=== PATIENT | female | born 1950 | race Caucasian/White ===

== ENCOUNTER 2017-08-22 18:02 | Emergency (ER) | payer MEDICARE ==
[2017-08-22 18:51] LABS: #Eosinphils 0.1 thou/uL (0.0-0.7); #Lymphocytes 2.3 thou/uL (1.20-3.40); #Monocytes 0.7 thou/uL (0.11-0.59); #Neutrophils 5.9 thou/uL (1.40-6.50); %Basophils 0.4 % (0.0-1.0); %Eosinophils 1.4 % (0.0-10.0); %Lymphocytes 25.6 % (21.0-51.0); %Neutrophils 64.5 % (42.0-75.0); Hemoglobin 12.3 g/dL (12.0-16.0); Mean Corpuscular HGB CONC 35.1 g/dL (32.0-36.0); Mean Corpuscular Hemoglobin 31.8 pg (27.0-31.0); Mean Corpuscular Volume 90.7 fl (81.0-99.0); Mean Platelet Volume 7.7 fL (7.4-10.4); Platelet Count 213 thou/uL (130-400); RBC Distribution Width 11.5 % (11.5-14.5); Red Blood Cell (RBC) Count 3.86 mill/uL (4.20-5.40); White Blood Cell (WBC) Count 9.1 thou/uL (4.8-10.8)
--- NOTE | 2017-08-22 18:56 | RAD ---
PORTABLE CHEST: 08/22/17 HISTORY: Asthmatic exacerbation. COMPARISON: 08/23/15 study. Heart size and mediastinum are within normal limits. The lungs are clear of any in focal infiltrative process. No significant bony findings. IMPRESSION: No active intrathoracic disease. POS: [facility]
[2017-08-22] MEDS ORDERED: methylPREDNISolone Sod Succ/PF 125 MG/2 ML VIAL ONE (19:11)
[2017-08-22 19:12] LABS: ALT (SGPT) 19 U/L (8-55); AST (SGOT) 18 U/L (5-34); Albumin 4.2 g/dL (3.4-4.8); Alkaline Phosphatase 49 U/L (40-150); Anion Gap 15 mmol/L (10-20); BUN (Urea Nitrogen) 9 mg/dL (9.8-20.1); Bilirubin, Total 0.4 mg/dL (0.2-1.2); Calc. Creatinine Clearance 0 mL/min (70-130); Calcium 9.9 mg/dL (7.8-10.44); Carbon Dioxide 22 mmol/L (23-31); Chloride 102 mmol/L (98-107); Estimated GFR-MDRD 76; Globulin 3.2 g/dL (2.4-3.5); Glucose 201 mg/dL (80-115); Protein, Total 7.4 g/dL (6.0-8.3); Sodium 135 mmol/L (136-145)
--- NOTE | 2017-08-24 13:28 | EKG ---
Test Reason : SOB Blood Pressure : / mmHG Vent. Rate : 086 BPM Atrial Rate : 086 BPM P-R Int : 138 ms QRS Dur : 082 ms QT Int : 360 ms P-R-T Axes : -18 -19 025 degrees QTc Int : 430 ms Sinus rhythm with Premature atrial complexes Otherwise normal ECG Confirmed by FLAKO AMOR ([id number]), pictures editor KAUR MADSEN ([id number] on 08/24/2017 1:27:35 PM Referred By: Confirmed By:FLAKO AMOR
== END 2017-08-22 23:21 | disposition home or self-care (01) ==
LOC: ERS 18:02
DX: J45.901 Unspecified asthma with (acute) exacerbation (principal); E11.9 Type 2 diabetes mellitus without complications; E78.5 Hyperlipidemia, unspecified; F17.220 Nicotine dependence, chewing tobacco, uncomplicated; Z79.82 Long term (current) use of aspirin; Z79.899 Other long term (current) drug therapy
CPT/HCPCS: 71010; 80053; 83880; 85025; 87804; 93005; 94640; 96374; J2930; J7620

== ENCOUNTER 2018-08-29 13:18 | Outpatient (CLI) | payer MEDICARE ==
--- NOTE | 2018-08-29 14:26 | BD ---
DEXA BONE MINERAL DENSITOMETRY STUDY: 08/29/2018 HISTORY: Postmenopausal. LUMBAR SPINE BMD (g/cm2) T-SCORE Z-SCORE L1 0.975 -0.1 1.6 L2 1.058 0.3 2.2 L3 0.935 -1.4 0.7 L4 0.915 -1.3 0.8 L1-L4 0.967 -0.7 1.3 LEFT FEMORAL NECK 0.576 -2.5 -0.8 TOTAL FEMUR 0.951 0.1 1.5 IMPRESSION: 1. Moderate osteopenia of the left femoral neck, indicating a four-fold increased risk for fracture. 2. Normal bone mineralization of the lumbar spine. POS: [facility]
== END 2018-08-29 13:19 | disposition home or self-care (01) ==
LOC: BICMAMMO 13:18
PROVIDERS: ATTEND Obstetrics & Gynecology
DX: Z12.31 Encounter for screening mammogram for malignant neoplasm of breast (principal); Z13.820 Encounter for screening for osteoporosis; M85.852 Other specified disorders of bone density and structure, left thigh
CPT/HCPCS: 77063; 77067; 77080

== ENCOUNTER 2018-12-19 23:52 | Emergency (ER) | payer MEDICARE ==
[2018-12-20] MEDS ORDERED: Albuterol Sulfate 2.5 mg/3 ml Neb ONE (01:15)
[2018-12-20] MEDS ORDERED: Dexamethasone 10 MG/ML VIAL ONE (01:20)
[2018-12-20] MEDS ORDERED: Magnesium 2 GM/50 ML BAG (IN WATER) ONE (01:20)
[2018-12-20 01:32] LABS: #Basophils 0.1 thou/uL (0.0-0.2); #Eosinphils 0.3 thou/uL (0.0-0.7); #Monocytes 0.7 thou/uL (0.11-0.59); #Neutrophils 2.8 thou/uL (1.40-6.50); %Basophils 1.4 % (0.0-1.0); %Eosinophils 3.9 % (0.0-10.0); %Lymphocytes 44.1 % (21.0-51.0); %Monocytes 9.6 % (0.0-10.0); %Neutrophils 40.9 % (42.0-75.0); Hemoglobin 12.7 g/dL (12.0-16.0); Mean Corpuscular HGB CONC 34.5 g/dL (32.0-36.0); Mean Corpuscular Volume 89.8 fL (78.0-98.0); Mean Platelet Volume 8.3 fL (7.4-10.4); Platelet Count 222 thou/uL (130-400); RBC Distribution Width 11.5 % (11.5-14.5); White Blood Cell (WBC) Count 6.7 thou/uL (4.8-10.8)
[2018-12-20 02:02] LABS: Albumin 4.5 g/dL (3.4-4.8)
[2018-12-20 02:03] LABS: Chloride 103 mmol/L (98-107); Potassium 4.5 mmol/L (3.5-5.1); Sodium 136 mmol/L (136-145)
[2018-12-20 02:04] LABS: Calcium 10.2 mg/dL (7.8-10.44); Glucose 128 mg/dL (80-115)
[2018-12-20 02:05] LABS: Globulin 2.7 g/dL (2.4-3.5); Protein, Total 7.2 g/dL (6.0-8.3)
[2018-12-20 02:06] LABS: Bilirubin, Total 0.4 mg/dL (0.2-1.2); Carbon Dioxide 22 mmol/L (23-31)
[2018-12-20 02:07] LABS: Alkaline Phosphatase 63 U/L (40-150)
[2018-12-20 02:08] LABS: BUN (Urea Nitrogen) 21 mg/dL (9.8-20.1); Calc. Creatinine Clearance 0 mL/min (70-130); Estimated GFR-MDRD 67
[2018-12-20 02:09] LABS: AST (SGOT) 19 U/L (5-34)
[2018-12-20 02:10] LABS: ALT (SGPT) 22 U/L (8-55); CK (CPK) 112 U/L (29-168)
[2018-12-20 02:20] LABS: Anion Gap 16 mmol/L (10-20)
--- NOTE | 2018-12-20 10:25 | RAD ---
AP CHEST: Date: 12/20/18 HISTORY: Dyspnea. COMPARISON: 07/2017. FINDINGS: Lungs are clear. No infiltrate or congestion. Heart size within normal range. IMPRESSION: No acute findings. No interval change. POS: [facility]
== END 2018-12-20 02:43 | disposition home or self-care (01) ==
LOC: ERS 23:52
DX: J44.1 Chronic obstructive pulmonary disease with (acute) exacerbation (principal); E11.9 Type 2 diabetes mellitus without complications; E78.5 Hyperlipidemia, unspecified; I10 Essential (primary) hypertension; Z79.84 Long term (current) use of oral hypoglycemic drugs; Z79.899 Other long term (current) drug therapy
CPT/HCPCS: 36415; 71045; 80053; 82550; 84484; 85025; 93005; 94640; 96361; 96374; 96375; J1100; J3475; J7611; J7620

== ENCOUNTER 2019-09-01 13:20 | Outpatient (CLI) | payer MEDICARE, OTHER, SELFPAY ==
--- NOTE | 2019-09-01 13:46 | MMO ---
Bilateral MAMMO Bilat Screen [facility]. CLINICAL HISTORY: Patient is 69 years old and is seen for screening. The patient has no family history of breast cancer. The patient has no personal history of cancer. VIEWS: The views performed were: bilateral craniocaudal with tomosynthesis and bilateral mediolateral oblique with tomosynthesis. FILMS COMPARED: The present examination has been compared to prior imaging studies performed at [facility] on 01/10/2011, 06/09/2015, 01/02/2017 and 08/29/2018. This study has been interpreted with the assistance of computer-aided detection. MAMMOGRAM FINDINGS: There are scattered fibroglandular densities. Benign calcifications are noted bilaterally. There are no suspicious masses, suspicious calcifications, or new areas of architectural distortion. IMPRESSION: THERE IS NO MAMMOGRAPHIC EVIDENCE OF MALIGNANCY. A ROUTINE FOLLOW-UP MAMMOGRAM IN 1 YEAR IS RECOMMENDED. THE RESULTS OF THIS EXAM WERE SENT TO THE PATIENT. ACR BI-RADS Category 2 - Benign finding MAMMOGRAPHY NOTE: 1. A negative mammogram report should not delay a biopsy if a dominant of clinically suspicious mass is present. 2. Approximately 10% to 15% of breast cancers are not detected by mammography. 3. Adenosis and dense breasts may obscure an underlying neoplasm. Reported by: ANGELICA GREEN MD Electonically Signed: [id number]
== END 2019-09-01 13:21 | disposition home or self-care (01) ==
LOC: BICMAMMO 13:20
PROVIDERS: ATTEND Obstetrics & Gynecology
DX: Z12.31 Encounter for screening mammogram for malignant neoplasm of breast (principal)
CPT/HCPCS: 77063; 77067

== ENCOUNTER 2020-09-02 08:22 | Outpatient (CLI) | payer MEDICARE ==
--- NOTE | 2020-09-02 09:21 | MMO ---
Bilateral MAMMO Bilat Screen [facility]. CLINICAL HISTORY: Patient is 70 years old and is seen for screening. The patient has no family history of breast cancer. The patient has no personal history of cancer. VIEWS: The views performed were: bilateral craniocaudal with tomosynthesis and bilateral mediolateral oblique with tomosynthesis. FILMS COMPARED: The present examination has been compared to prior imaging studies performed at [facility] on 06/09/2015, 01/02/2017, 08/29/2018 and 09/01/2019. This study has been interpreted with the assistance of computer-aided detection. MAMMOGRAM FINDINGS: There are scattered fibroglandular densities. There are stable benign appearing calcifications seen in both breasts. There are no suspicious masses, suspicious calcifications, or new areas of architectural distortion. IMPRESSION: THERE IS NO MAMMOGRAPHIC EVIDENCE OF MALIGNANCY. A ROUTINE FOLLOW-UP MAMMOGRAM IN 1 YEAR IS RECOMMENDED. THE RESULTS OF THIS EXAM WERE SENT TO THE PATIENT. ACR BI-RADS Category 2 - Benign finding MAMMOGRAPHY NOTE: 1. A negative mammogram report should not delay a biopsy if a dominant of clinically suspicious mass is present. 2. Approximately 10% to 15% of breast cancers are not detected by mammography. 3. Adenosis and dense breasts may obscure an underlying neoplasm. Reported by: RONEL RAMACHANDRAN MD Electonically Signed: [id number]
== END 2020-09-02 08:23 | disposition home or self-care (01) ==
LOC: BICMAMMO 08:22
PROVIDERS: ATTEND Obstetrics & Gynecology
DX: Z12.31 Encounter for screening mammogram for malignant neoplasm of breast (principal)
CPT/HCPCS: 77063; 77067

== ENCOUNTER 2021-09-05 10:22 | Outpatient (CLI) | payer MEDICARE | END 2021-09-05 10:23 | disposition home or self-care (01) | LOC: BICMAMMO 10:22 | PROVIDERS: ATTEND Obstetrics & Gynecology | DX: Z12.31 Encounter for screening mammogram for malignant neoplasm of breast (principal) | CPT/HCPCS: 77063; 77067 ==

== ENCOUNTER 2022-02-12 09:12 | Outpatient (CLI) | payer MEDICARE | END 2022-02-12 09:13 | disposition home or self-care (01) | LOC: BICMAMMO 09:12 | PROVIDERS: ATTEND Obstetrics & Gynecology | DX: Z13.820 Encounter for screening for osteoporosis (principal); M81.0 Age-related osteoporosis without current pathological fracture; M85.88 Other specified disorders of bone density and structure, other site | CPT/HCPCS: 77080 ==

== ENCOUNTER 2022-11-26 16:49 | Inpatient (IN) | payer MEDICARE ==
[2022-11-26 17:21] LABS: #Basophils 0.1 thou/uL (0.0-0.2); #Eosinphils 0.1 thou/uL (0.0-0.7); #Lymphocytes 3.1 thou/uL (1.20-3.40); #Neutrophils 6.9 thou/uL (1.40-6.50); %Basophils 0.6 % (0.0-1.0); %Eosinophils 0.9 % (0.0-10.0); %Monocytes 8.9 % (0.0-10.0); %Neutrophils 61.6 % (42.0-75.0); Hemoglobin 14.8 g/dL (12.0-16.0); Mean Corpuscular HGB CONC 33.4 g/dL (32.0-36.0); Mean Corpuscular Hemoglobin 29.6 pg (27.0-31.0); Mean Corpuscular Volume 88.8 fl (78.0-98.0); Mean Platelet Volume 8.8 fL (7.4-10.4); Platelet Count 271 10x3/uL (130-400); RBC Distribution Width 12.3 % (11.5-14.5); White Blood Cell (WBC) Count 11.2 10x3/uL (4.8-10.8)
[2022-11-26 17:44] LABS: ALT (SGPT) 17 U/L (8-55); AST (SGOT) 21 U/L (5-34); Albumin 4.4 g/dL (3.4-4.8); Alkaline Phosphatase 29 U/L (40-110); Anion Gap 15 mmol/L (10-20); BUN (Urea Nitrogen) 34 mg/dL (9.8-20.1); Bilirubin, Total 0.3 mg/dL (0.2-1.2); Calc. Creatinine Clearance 0 mL/min (70-130); Calcium 10.1 mg/dL (7.8-10.44); Carbon Dioxide 22 mmol/L (23-31); Chloride 104 mmol/L (98-107); Estimated GFR 42; Globulin 3.2 g/dL (2.4-3.5); Glucose 147 mg/dL (83-110); Potassium 4.8 mmol/L (3.5-5.1); Protein, Total 7.6 g/dL (5.8-8.1); Sodium 136 mmol/L (136-145)
[2022-11-26 18:05] LABS: CKMB 2.1 ng/mL (0-6.6)
[2022-11-26] MEDS ORDERED: Aspirin Chewable 81 MG TAB ONE (18:12)
[2022-11-26] MEDS ORDERED: Diltiazem 125 MG/25 ML SDV ONE (18:12)
[2022-11-26] MEDS ORDERED: Dextrose 50% Abboject 50 ML SYRINGE SLOW IVP PRN (19:41)
[2022-11-26] MEDS ORDERED: Dextrose 5% in Water 1,000 ML IV PRN (19:41)
[2022-11-26] MEDS ORDERED: Ondansetron ODT 4 MG TAB PO PRN (19:41)
[2022-11-26] MEDS ORDERED: Acetaminophen 325 MG TAB PO PRN (19:41)
[2022-11-26] MEDS ORDERED: HumaLOG 300 UNITS/3 ML VIAL SC PRN (19:43)
[2022-11-26] MEDS ORDERED: Diltiazem 125 MG in Sodium Chloride 0.9% 100 ML IVPB SCH (19:45)
[2022-11-26] MEDS ORDERED: Albuterol 200 PUFF (6.7GM INHALER) INH PRN (19:49)
[2022-11-26 20:57] LABS: Magnesium 1.8 mg/dL (1.6-2.6); Phosphorus 3.6 mg/dL (2.3-4.7)
[2022-11-26] MEDS ORDERED: Magnesium 2 GM/50 ML(in water) 1 GM in Premix Bag 1 BAG IVPB SCH (21:15)
[2022-11-26 22:50] LABS: Troponin I 0.075 ng/mL (< 0.028)
[2022-11-27] MEDS: Gabapentin 400 MG CAP PO SCH ×4 (00:06→21:36)
[2022-11-27] MEDS: Insulin Glargine 30 UNITS/0.3 ML VIAL SC SCH ×2 (00:06→21:42)
[2022-11-27] MEDS: Melatonin 3 MG TAB PO SCH ×2 (00:08→21:36)
[2022-11-27] MEDS: Rosuvastatin 20 MG TAB PO SCH ×2 (00:09→21:36)
[2022-11-27] MEDS ORDERED: Magnesium 2 GM/50 ML BAG (IN WATER) ONE (02:09)
[2022-11-27 05:08] VITALS: BMI 31.1
[2022-11-27 06:13] LABS: #Basophils 0.1 thou/uL (0.0-0.2); #Eosinphils 0.1 thou/uL (0.0-0.7); #Lymphocytes 3.3 thou/uL (1.20-3.40); #Monocytes 0.6 thou/uL (0.11-0.59); #Neutrophils 2.7 thou/uL (1.40-6.50); %Basophils 0.9 % (0.0-1.0); %Eosinophils 2.2 % (0.0-10.0); %Lymphocytes 48.4 % (21.0-51.0); %Monocytes 9.1 % (0.0-10.0); %Neutrophils 39.5 % (42.0-75.0); Hemoglobin 13.4 g/dL (12.0-16.0); Mean Corpuscular HGB CONC 34.3 g/dL (32.0-36.0); Mean Corpuscular Hemoglobin 30.7 pg (27.0-31.0); Mean Corpuscular Volume 89.4 fl (78.0-98.0); Mean Platelet Volume 8.7 fL (7.4-10.4); Platelet Count 199 10x3/uL (130-400); RBC Distribution Width 12.1 % (11.5-14.5); Red Blood Cell (RBC) Count 4.37 mill/uL (4.20-5.40); White Blood Cell (WBC) Count 6.9 10x3/uL (4.8-10.8)
[2022-11-27] MEDS: Levothyroxine Sodium 125 MCG TAB PO SCH (06:30)
[2022-11-27 06:33] LABS: Anion Gap 11 mmol/L (10-20); BUN (Urea Nitrogen) 30 mg/dL (9.8-20.1); Calc. Creatinine Clearance 68 mL/min (70-130); Calcium 8.7 mg/dL (7.8-10.44); Carbon Dioxide 21 mmol/L (23-31); Chloride 105 mmol/L (98-107); Estimated GFR 61; Glucose 153 mg/dL (83-110); Sodium 133 mmol/L (136-145)
[2022-11-27] MEDS: Mometasone/Formoterol 200/5 60 PUFF INH SCH ×2 (07:27→18:12)
[2022-11-27] MEDS ORDERED: Aspirin Chewable 81 MG TAB ONE (09:12)
[2022-11-27] MEDS: Empagliflozin 25 MG TAB PO SCH (09:23)
[2022-11-27] MEDS: Aspirin 81 mg Enteric Coated Tablet PO SCH (09:23)
[2022-11-27] MEDS: Fenofibrate 48 MG TAB PO SCH (09:23)
[2022-11-27] MEDS: Lisinopril 20 MG TAB PO SCH (09:24)
[2022-11-27] MEDS: Citalopram 20 MG TAB PO SCH (09:24)
[2022-11-27] MEDS: Cyanocobalamin (Vitamin B-12) 1,000 MCG TAB PO SCH (09:37)
[2022-11-27] MEDS: HumaLOG 300 UNITS/3 ML VIAL SC PRN ×2 (11:43→16:04)
[2022-11-27] MEDS ORDERED: HumaLOG 300 UNITS/3 ML VIAL ONE (11:45)
[2022-11-27] MEDS: Flecainide 50 MG TAB PO SCH (21:36)
[2022-11-28 05:26] LABS: Anion Gap 11 mmol/L (10-20); BUN (Urea Nitrogen) 23 mg/dL (9.8-20.1); Calc. Creatinine Clearance 73 mL/min (70-130); Calcium 8.8 mg/dL (7.8-10.44); Carbon Dioxide 21 mmol/L (23-31); Chloride 106 mmol/L (98-107); Estimated GFR 66; Glucose 105 mg/dL (83-110); Potassium 3.9 mmol/L (3.5-5.1); Sodium 134 mmol/L (136-145)
[2022-11-28] MEDS: Levothyroxine Sodium 125 MCG TAB PO SCH (05:59)
[2022-11-28] MEDS: Flecainide 50 MG TAB PO SCH ×2 (06:00→22:15)
[2022-11-28] MEDS: Lisinopril 20 MG TAB PO SCH (06:00)
[2022-11-28] MEDS: Aspirin 81 mg Enteric Coated Tablet PO SCH (06:00)
[2022-11-28] MEDS: Mometasone/Formoterol 200/5 60 PUFF INH SCH ×2 (06:59→19:10)
[2022-11-28 07:08] LABS: Magnesium 1.9 mg/dL (1.6-2.6); Phosphorus 3.2 mg/dL (2.3-4.7)
[2022-11-28] MEDS: Citalopram 20 MG TAB PO SCH (09:07)
[2022-11-28] MEDS: Cyanocobalamin (Vitamin B-12) 1,000 MCG TAB PO SCH (09:07)
[2022-11-28] MEDS: Gabapentin 400 MG CAP PO SCH ×3 (09:08→22:14)
[2022-11-28] MEDS: Fenofibrate 48 MG TAB PO SCH (09:08)
[2022-11-28] MEDS: Empagliflozin 25 MG TAB PO SCH (09:09)
[2022-11-28] MEDS ORDERED: PROPOFOL 200 MG/20 ML VIAL ONE (15:25)
[2022-11-28] MEDS ORDERED: Lidocaine 1% PF 5 ML VIAL ONE (15:25)
[2022-11-28] MEDS ORDERED: Apixaban 5 MG TAB PO SCH (15:45)
[2022-11-28] MEDS: Insulin Glargine 30 UNITS/0.3 ML VIAL SC SCH (22:14)
[2022-11-28] MEDS: Apixaban 5 MG TAB PO SCH (22:17)
[2022-11-28] MEDS: Rosuvastatin 20 MG TAB PO SCH (22:17)
[2022-11-28] MEDS: Melatonin 3 MG TAB PO SCH (22:17)
[2022-11-29 04:27] LABS: Anion Gap 13 mmol/L (10-20); BUN (Urea Nitrogen) 20 mg/dL (9.8-20.1); Calc. Creatinine Clearance 79 mL/min (70-130); Calcium 8.9 mg/dL (7.8-10.44); Carbon Dioxide 21 mmol/L (23-31); Chloride 106 mmol/L (98-107); Estimated GFR 73; Glucose 138 mg/dL (83-110); Potassium 3.9 mmol/L (3.5-5.1); Sodium 136 mmol/L (136-145)
[2022-11-29] MEDS: Levothyroxine Sodium 125 MCG TAB PO SCH (06:34)
[2022-11-29] MEDS: Mometasone/Formoterol 200/5 60 PUFF INH SCH (07:15)
[2022-11-29] MEDS: Flecainide 50 MG TAB PO SCH (09:13)
[2022-11-29] MEDS: Lisinopril 20 MG TAB PO SCH (09:13)
[2022-11-29] MEDS: Citalopram 20 MG TAB PO SCH (09:14)
[2022-11-29] MEDS: Aspirin 81 mg Enteric Coated Tablet PO SCH (09:14)
[2022-11-29] MEDS: Apixaban 5 MG TAB PO SCH (09:14)
[2022-11-29] MEDS: Fenofibrate 48 MG TAB PO SCH (09:14)
[2022-11-29] MEDS: Empagliflozin 25 MG TAB PO SCH (09:15)
[2022-11-29] MEDS: Gabapentin 400 MG CAP PO SCH (09:15)
[2022-11-29] MEDS: Cyanocobalamin (Vitamin B-12) 1,000 MCG TAB PO SCH (09:15)
[2022-11-29 12:10] VITALS: BP 121/67; TEMP 98.2
== END 2022-11-29 12:49 | disposition home or self-care (01) | DRG 281 ==
LOC: ERS 16:49 → ERHOLD 19:41 → 2NO 11-27 18:03
PROVIDERS: ADMIT Family Medicine; ATTEND Family Medicine
PROC: B246ZZ4 Ultrasonography of Right and Left Heart, Transesophageal (ICD-10-PCS; principal; 2022-11-28)
PROC: 5A2204Z Restoration of Cardiac Rhythm, Single (ICD-10-PCS; 2022-11-29)
DX: I48.19 Other persistent atrial fibrillation (principal); I21.A1 Myocardial infarction type 2; N17.9 Acute kidney failure, unspecified; E03.9 Hypothyroidism, unspecified; I10 Essential (primary) hypertension; E78.00 Pure hypercholesterolemia, unspecified; E66.9 Obesity, unspecified; J45.909 Unspecified asthma, uncomplicated; E11.40 Type 2 diabetes mellitus with diabetic neuropathy, unspecified; M81.0 Age-related osteoporosis without current pathological fracture; K21.9 Gastro-esophageal reflux disease without esophagitis; M19.90 Unspecified osteoarthritis, unspecified site; F32.9 Major depressive disorder, single episode, unspecified; G25.0 Essential tremor; L90.0 Lichen sclerosus et atrophicus; E78.5 Hyperlipidemia, unspecified; I08.1 Rheumatic disorders of both mitral and tricuspid valves; Z98.890 Other specified postprocedural states; Z90.710 Acquired absence of both cervix and uterus; Z88.5 Allergy status to narcotic agent; Z88.8 Allergy status to other drugs, medicaments and biological substances; Z79.51 Long term (current) use of inhaled steroids; Z79.82 Long term (current) use of aspirin; Z79.84 Long term (current) use of oral hypoglycemic drugs; Z79.899 Other long term (current) drug therapy; Z68.31 Body mass index [BMI] 31.0-31.9, adult
CPT/HCPCS: 36415; 36416; 71045; 80048; 80053; 82553; 83605; 83735; 83880; 84100; 84439; 84443; 84484; 85025; 92960; 93005; 93306; 93312; 94664; J1650; J1815; J2704; J3475

== ENCOUNTER 2023-12-30 16:01 | Inpatient (IN) | payer MEDICARE ==
[2023-12-30 21:12] VITALS: BMI 31.6
[2024-01-02 13:15] VITALS: BP 125/56; TEMP 98.4
== END 2024-01-02 14:09 | disposition home or self-care (01) | DRG 308 ==
LOC: ERS 16:01 → ERHOLD 18:17 → OBSVTOIN 12-31 10:02 → 2SW 12-31 11:38
PROVIDERS: ADMIT Family Medicine; ATTEND Family Medicine
PROC: 5A2204Z Restoration of Cardiac Rhythm, Single (ICD-10-PCS; principal; 2024-01-02)
DX: I48.19 Other persistent atrial fibrillation (principal); J96.01 Acute respiratory failure with hypoxia; J45.909 Unspecified asthma, uncomplicated; F32.A Depression, unspecified; K21.9 Gastro-esophageal reflux disease without esophagitis; E03.9 Hypothyroidism, unspecified; E11.40 Type 2 diabetes mellitus with diabetic neuropathy, unspecified; M19.90 Unspecified osteoarthritis, unspecified site; Z88.5 Allergy status to narcotic agent; Z88.8 Allergy status to other drugs, medicaments and biological substances; Z79.899 Other long term (current) drug therapy; Z98.890 Other specified postprocedural states
CPT/HCPCS: 36415; 36416; 71045; 71275; 80048; 80053; 81001; 83690; 83735; 83880; 84443; 84484; 85025; 93005; 93010; 93306; 94640; J1815; J2704; J7626; Q9967

== ENCOUNTER 2025-05-31 08:56 | Outpatient (CLI) | payer OTHER | END 2025-05-31 08:57 | disposition home or self-care (01) | LOC: MRI 08:56 | PROVIDERS: ATTEND Family Medicine | DX: E27.8 Other specified disorders of adrenal gland (principal) | CPT/HCPCS: 74183 ==